=== PATIENT | male | born 2005 | race Caucasian/White ===

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

== ENCOUNTER 2025-05-01 17:41 | Emergency (ER) | payer OTHER, SELFPAY ==
[2025-05-01 18:11] VITALS: BP 154/89; PULSE 105; RESP 16; TEMP 37.1; O2SAT 100
--- NOTE | 2025-05-01 18:16 | ED_ITS ---
HPI - Skin/Abscess/Foreign Bdy General Chief complaint: Skin/Abscess/Foreign Body <Carlos Yepez APRN - Last Filed: 05/01/25 18:18> Stated complaint: CYST ON TAILBONE <Carlos Yepez APRN - Last Filed: 05/01/25 18:18> Time Seen by Provider: 05/01/25 18:37 <Carlos Yepez APRN - Last Filed: 05/01/25 18:18> Focused HPI: 19-year-old male presents to the ER complaining of possible pilonidal cyst. Patient complaining of table pain for last 3 days. Patient reports redness swelling and drainage coming out of his tailbone space. Patient said he fell a pop and said it started to drain however the strain has subsided. Patient denies any fevers, body aches, chills, nausea vomiting, or other symptoms. Patient denies any history of perirectal abscess or pilonidal cyst. Patient denies any significant past medical history. GENERAL: Well-appearing, well-nourished, and in no acute distress. HEAD: Normocephalic, atraumatic. CHEST: Clear to auscultation. ?No respiratory distress. HEART: Regular rate and rhythm.? NEURO: ?Alert and oriented x3. SKIN: Demetrius ALMAZAN was a inspector fuel hose present during exam: Coccyx: There is area of erythema and swelling to the tailbone area. There is an area of fluctuance and induration. It is not actively draining. It is tender to palpate. Patient screened in triage and initial orders placed.? ?Additional care and disposition to be based upon?diagnostic testing and treatment. <Carlos Yepez APRN - Last Filed: 05/01/25 18:18> Related Data Allergies/Adverse reactions: Allergies Allergy/AdvReac Type Severity Reaction Status Date / Time No Known Allergies Allergy Verified 05/01/25 17:42 <Carlos Yepez APRN - Last Filed: 05/01/25 18:18> PMFSH Social History Social History: Social History Gender identity (if verbalized by the patient): Male <Carlos Yepez APRN - Last Filed: 05/01/25 18:18> Exam Narrative: APPEARANCE: No apparent distress. Head: atraumatic. EYES: EOMI, NOSE: Atraumatic NECK: Trachea midline RESPIRATORY: No increased rate of breathing CARDIOVASCULAR: RRR, ABDOMINAL: Non-distended MUSCULOSKELETAl: No obvious deformities NEURO: Alert. Moving 4/4 extremities SKIN:: Focal exam of the gluteal cleft showed induration at the top of the gluteal cleft. There is a site where you can see was draining. There is no fluctuant mass. There is some induration but no significant erythema. Point of care ultrasound did not show a large fluid collection that would be amenable to incision and drainage. There is some cobblestoning indicative of cellulitic change. PSYCHIATRIC: Normal affect <Santiago Pozo MD - Last Filed: 05/01/25 19:21> Course Vital Signs Vital signs: Vital Signs Temperature 98.8 F 05/01/25 18:11 Pulse Rate 105 H 05/01/25 18:11 Respiratory Rate 16 05/01/25 18:11 Blood Pressure 154/89 H 05/01/25 18:11 Pulse Oximetry 100 05/01/25 18:11 Oxygen Delivery Room Air 05/01/25 18:11 Temperature 98.8 F 05/01/25 18:11 Pulse Rate 105 H 05/01/25 18:11 Respiratory Rate 16 05/01/25 18:11 Blood Pressure 154/89 H 05/01/25 18:11 Pulse Oximetry 100 05/01/25 18:11 Oxygen Delivery Room Air 05/01/25 18:11 <Carlos Yepez APRN - Last Filed: 05/01/25 18:18> Vital Signs Temperature 98.8 F 05/01/25 18:11 Pulse Rate 105 H 05/01/25 18:11 Respiratory Rate 16 05/01/25 18:11 Blood Pressure 154/89 H 05/01/25 18:11 Pulse Oximetry 100 05/01/25 18:11 Oxygen Delivery Room Air 05/01/25 18:11 Temperature 98.8 F 05/01/25 18:11 Pulse Rate 105 H 05/01/25 18:11 Respiratory Rate 16 05/01/25 18:11 Blood Pressure 154/89 H 05/01/25 18:11 Pulse Oximetry 100 05/01/25 18:11 Oxygen Delivery Room Air 05/01/25 18:11 <Santiago Pozo MD - Last Filed: 05/01/25 19:21> MDM - Skin/Abscess/Foreign Bdy MDM Narrative Medical decision making narrative: -Course: 19-year-old male presenting with a pilonidal abscess. It is already ruptured and started to drain. No appreciable fluid collection on physical exam or point of care ultrasound. He will be discharged on Bactrim and given general surgery follow-up. Given return precautions for return/worsening of the cyst. -DDX includes but is not limited to:pilonidal cyst, pilonidal abscess, cellulitis <Santiago Pozo MD - Last Filed: 05/01/25 19:21> Discharge Plan Discharge Clinical Impression: Pilonidal cyst <Carlos Yepez APRN - Last Filed: 05/01/25 18:18> Patient Disposition: Home <Carlos Yepez APRN - Last Filed: 05/01/25 18:18> Condition: Stable <Carlos Yepez APRN - Last Filed: 05/01/25 18:18> Instructions: Antibiotic Form, Pilonidal Cyst (ED) <Carlos Yepez APRN - Last Filed: 05/01/25 18:18> Additional Instructions: He was seen emergency department for a pilonidal abscess. It is already draining. Please complete a course of Bactrim and follow-up with the general surgeon listed below as this may need incision and drainage or possible removal if it continues to happen. Return if you develop severe pain fevers or feel like her condition is getting worse. <Carlos Yepez APRN - Last Filed: 05/01/25 18:18> Patient Language: Senegalese <Carlos Yepez APRN - Last Filed: 05/01/25 18:18> Prescriptions: New sulfamethoxazole-trimethoprim [Bactrim DS] 800-160 mg tablet 1 tablet PO Q12H 7 Days Qty: 14 0RF <Carlos Yepez APRN - Last Filed: 05/01/25 18:18> Follow-up/Referrals: Jackelyn Pearson MD [Primary Care Provider, Pediatrics] Kyree Munoz MD [Physician, General Surgery] - 1 Week <Carlos Yepez APRN - Last Filed: 05/01/25 18:18>
--- OUTSIDE RECORDS SUMMARY | 2025-05-01 19:27 | XMS_ITS | Clinical Summary ---
Author Organization [facility] Address [address] [place] [address] Care Team Providers Care Online Merchant Name Role Phone Jackelyn Pearson MD Primary Care Provider [phone] Source Comments [facility],non-owned Affiliates and Associated Physician Practices is amultiple site organization consisting of ambulatory clinics and hospital sitesin [place], [place], [place] and [place]. This disclosure is being madepursuant to the Care Everywhere program and may not contain all information available regarding this patient. Last updated 18.[facility] Allergies No known active allergies Medications * Be aware that medications may not be up to date on this document. Alwaysverify current medications with the patient. acetaminophen (Tylenol) 500 MG tabletIndicati ons:Fever Take 2 (two) tablets by mouth every 6 hours as needed for Fever or Headache Maximum allowable Acetaminophen amount = 4 Grams (4000 mg) / 24 hours. Reasons: Fever 40 tablet Active Social History Tobacco Use Types Packs/Day Years Used Date Smoking Tobacco: Unknown Tobacco Cessation:Counseling Given: Not Answered Sex and Gender Information Value Date Recorded Sex Assigned at Not on file Legal Sex Male 3:45 PM CDT Gender Identity Not on file Sexual Orientation Not on file Last Filed Vital Signs Vital Sign Reading Time Taken Comments Blood Pressure 149/82 11/22/2023 7:05 PM CDT Pulse 62 11/22/2023 7:05 PM CDT Temperature 37.1 C (98.8 F) 11/22/2023 7:05 PM CDT Respiratory Rate 16 11/22/2023 7:05 PM CDT Oxygen Saturation 100% 11/22/2023 4:32 PM CDT Inhaled Oxygen Concentration - - Weight 111.3 kg (245 lb 6 oz) 11/22/2023 4:32 PM CDT Height - - Body Mass Index - - Plan of Treatment Health Maintenance Due Date Last Done Comments HIV SCREENING 2020 HPV VACCINE (1 - Male 3-dose series) 2020 MENINGOCOCCAL (Group B) VACC INE SHARED DECISION-MAKING (1 of 2 - Standard) 2021 HEPATITIS C SCREENING 08/20/2023 COVID-19 VACCINE (1 - 2023-2 5 season) 2024 DEPRESSION SCREENING 08/22/2024 DTAP/TDAP/TD VACCINES (1 - Tdap) 2024 HEPATITIS B VACCINE (1 of 3 - 19+ 3-dose series) 2024 INFLUENZA VACCINE (#1) 2025 ZOSTER VACCINE (1 of 2) 2055 HIB VACCINE Aged Out No longer eligi ble based on patient's age to complete this topic MENINGOCOCCAL GROUPS A/C/Y/W VACCINE Aged Out No longer eligible b ased on patient's age to complete this topic PNEUMOCOCCAL VACCINE Aged Out No long er eligible based on patient's age to [place] [address] [facility] Care Teams Online Merchant Relationship Specialty Start Date End Date Jackelyn Pearson MD [address] [place], [place] [address] PCP - General Pediatrics 11/22/23
[2025-05-01 19:32] LABS: Alanine Aminotransferase 22 U/L (6-50); Albumin Level 4.5 g/dL (3.7-5.6); Alkaline Phosphatase 91 U/L (58-237); Anion Gap 8 mmol/L (4-12); Aspartate Amino Transferase 27 U/L (17-59); Bilirubin,Total 0.5 mg/dL (0.2-1.3); Blood Urea Nitrogen 11 mg/dL (8-21); Calcium 9.6 mg/dL (8.9-10.7); Carbon Dioxide 30 mmol/L (22-30); Chloride 100 mmol/L (98-107); Estimated Glomerular Filt Rate > 60; Glucose 108 mg/dL (65-110); Potassium 4.8 mmol/L (3.4-5.0); Sodium 138 mmol/L (134-143); Total Protein 8.2 g/dL (6.3-8.6)
[2025-05-01 19:47] VITALS: BP 135/74; PULSE 78; RESP 14; O2SAT 99
[2025-05-01 20:14] LABS: Hematocrit 42.7 % (42.0-52.0); Hemoglobin 14.0 g/dL (14.0-18.0); Immature Granulocyte Percent A 0.3 % (0-0.5); Lymphocytes Absolute Auto 1.35 K/mm3 (0.9-3.2); Mean Corpuscular HGB Conc 32.8 g/dl (32-36); Mean Corpuscular Hemoglobin 29.3 pg (26-34); Mean Corpuscular Volume 89.3 fl (80-100); Nucleated Red Blood Cells Absolute Auto 0.000 K/mm3 (0.0-0.012); Nucleated Red Blood Cells Perc 0.0 % (0.0-0.2); Platelet Count Result 249 k/mm3 (150-375); Red Blood Count 4.78 M/mm3 (4.6-6.20); White Blood Count 9.4 K/mm3 (4.5-10.0)
== END 2025-05-01 19:49 | disposition home or self-care (01) ==
LOC: ANHED 19:25
PROVIDERS: Emergency Provider Emergency Medicine; PCP Pediatrics
DX: L05.91 Pilonidal cyst without abscess (principal)
CPT/HCPCS: 36415; 80053; 85025; 99283

== ENCOUNTER 2025-06-25 11:56 | Emergency (ER) | payer OTHER, SELFPAY ==
[2025-06-25 12:09] VITALS: BP 140/69; PULSE 98; RESP 18; TEMP 37.9; O2SAT 99
--- NOTE | 2025-06-25 12:18 | ED_ITS ---
HPI - General Adult General Chief complaint: Upper Respiratory Infection Stated complaint: Sore Throat Time Seen by Provider: 06/25/25 12:19 Source: patient, RN notes reviewed and old records reviewed Mode of arrival: ambulatory Limitations: no limitations History of Present Illness HPI narrative: 19-year-old male presents to the [facility] with complaints of a sore throat, fevers, body aches, headache for 2-3 days. No treatment prior to arrival Onset (ago): day(s) (2-3) Related Data Allergies Allergy/AdvReac Type Severity Reaction Status Date / Time No Known Allergies Allergy Verified 06/25/25 12:12 Review of Systems Review of Systems: All systems reviewed & are unremarkable except as noted in HPI and below Constitutional: Constitutional: Reports as per HPI ENT: Reports as per HPI Cardiovascular: Cardiovascular: Reports no additional cardiovascular complaints, Denies chest pain and Denies dyspnea Respiratory: Respiratory: Reports no additional respiratory complaints, Denies chest congestion, Denies cough and Denies dyspnea Musculoskeletal: Musculoskeletal: Reports no additional musculoskeletal complaints Integumentary/Breasts: Skin/Breast: Reports system reviewed and no additional complaints, except as docu PMFSH Social History Social History Gender identity (if verbalized by the patient): Male Comments At the time of my signature, I reviewed and agree with the nursing past medical, surgical, social, and family history. There is no relevant family history pertinent to the patient complaint. Exam Const: General: cooperative, healthy appearing, comfortable, no acute distress, well developed, alert and well nourished Nutritional Appearance: well nourished Orientation/consciousness: patient oriented x3 Limitations: no limitations HENMT: Head: normal to inspection Ears: hearing grossly normal bilaterally, external ears normal, TM's normal bilaterally, EAC's normal, mastoids normal and no periauricular adenopathy Throat: posterior oropharynx normal, uvula midline, abnormal tonsil bilateral erythema, exudates and hypertrophy 3+ and no uvular edema Eyes: General: appearance normal, both eyes and all related structures Alignment and Position: alignment normal Neck: Neck: normal visual inspection, full ROM, no lymphadenopathy and no meningeal signs Chest: Chest palpation & inspection: normal inspection of the chest Resp: Effort & Inspection: normal respiratory effort and able to speak in complete sentences Auscultation: clear to auscultation bilaterally, no crackles, no rales, no rhonchi and no wheezes Cardio: Rate: regular rate Skin: General skin exam: normal color and no rashes or lesions noted Neuro: General: patient oriented x3, gait normal, moves all extremities and no meningeal signs Cognition (Neuro): normal cognition Speech: normal speech Gait exam (Neuro): Normal gait present Extrem: General: normal to inspection, full ROM, capillary refill normal and normal gait Psych: Appearance: grossly normal and well kempt Mental Status: mental s tatus grossly normal Speech and movement: Normal speech and movement present and Clear speech present Affect: normal affect Attitude: cooperative Course Course Level of Care: Express Care Visit Vital Signs Vital signs: Vital Signs Temperature 100.2 F H 06/25/25 12:09 Pulse Rate 98 06/25/25 12:09 Respiratory Rate 18 06/25/25 12:09 Blood Pressure 140/69 06/25/25 12:09 Pulse Oximetry 99 06/25/25 12:09 Oxygen Delivery Room Air 06/25/25 12:09 Temperature 100.2 F H 06/25/25 12:09 Pulse Rate 98 06/25/25 12:09 Respiratory Rate 18 06/25/25 12:09 Blood Pressure 140/69 06/25/25 12:09 Pulse Oximetry 99 06/25/25 12:09 Oxygen Delivery Room Air 06/25/25 12:09 Reviewed Medical Decision Making MDM Narrative Medical decision making narrative: Patient sitting in exam room. Patient is nontoxic, vitals stable. Patient presents with 2-3 day history of sore throat, body aches, fevers. Patient strep, flu, COVID are negative. Polk is negative. Will culture however will treat based on significant erythema, exudate and swelling of bilateral tonsils. Patient appropriate for outpatient treatment with strict signs and symptoms to proceed to the emergency room Discharge instructions reviewed with patient, as well as provided in writing per nursing staff. The instructions also include specific and strict return/GO TO THE ER as well as f/u information. All questions have been answered, and the patient deny any further questions with discharge and discharge plan. Some parts of this dictation were generated by voice recognition software and may contain typographical and/or grammatical inaccuracies. Differential Diagnosis Differential Diagnosis: Strep, flu, COVID, mono, URI, abscess Medical Records Medical records reviewed: Yes I reviewed the external patient's medical records. Vital Signs Vital Signs: Vital Signs Temperature 100.2 F H 06/25/25 12:09 Pulse Rate 98 06/25/25 12:09 Respiratory Rate 18 06/25/25 12:09 Blood Pressure 140/69 06/25/25 12:09 Pulse Oximetry 99 06/25/25 12:09 Oxygen Delivery Room Air 06/25/25 12:09 Temperature 100.2 F H 06/25/25 12:09 Pulse Rate 98 06/25/25 12:09 Respiratory Rate 18 06/25/25 12:09 Blood Pressure 140/69 06/25/25 12:09 Pulse Oximetry 99 06/25/25 12:09 Oxygen Delivery Room Air 06/25/25 12:09 Reviewed Lab Data Lab results reviewed: Yes I reviewed the patient's lab results. Labs: Lab Results 06/25/25 06/25/25 Range/Units 12:05 12:25 POC Monoscreen Negative (Positive) POC Influenza A Ag Negative (Negative) POC Influenza B Ag Negative (Negative) POC SARS CoV-2 Ag Negative (Negative) POC Grp A Strep Screen Negative (Negative) Reviewed Critical Care Time Critical Care Time Critical Care Time: No Discharge Plan Discharge Clinical Impression: Tonsillitis with exudate Patient Disposition: Home Condition: Stable Instructions: Antibiotic Form, Tonsillitis (ED) Additional Instructions: Take Motrin alternating with Tylenol as needed for pain Take the antibiotic as prescribed for the full 10 days For new or worsening symptoms go directly to the emergency room Patient Language: Barbadian Prescriptions: New amoxicillin-pot clavulanate 875-125 mg tablet 1 tablet PO Q12H Qty: 20 0RF Follow-up/Referrals: Jackelyn Pearson MD [Primary Care Provider, Pediatrics] Stand Alone Forms: Work/School Release IP Time of Disposition: 12:45
[2025-06-25 12:45] LABS: EDCOVIDSCREEN Negative (Negative); EDINFLUASCREEN Negative (Negative); EDINFLUBSCREEN Negative (Negative); EDSTREPNEGPOS1 Negative (Negative)
[2025-06-25 12:45] LABS: EDMONONEGPOS Negative (Positive)
== END 2025-06-25 12:51 | disposition home or self-care (01) ==
PROVIDERS: Emergency Provider Nurse Practitioner; PCP Pediatrics
DX: J03.90 Acute tonsillitis, unspecified (principal); Z20.822 Contact with and (suspected) exposure to COVID-19
CPT/HCPCS: 36416; 86308; 87081; 87426; 87804; 87880; 99213; G0463